=== PATIENT | female | born 1990 | race Caucasian/White ===

== ENCOUNTER 2016-12-25 13:22 | Emergency (ER) | payer OTHER ==
[~2016-12-25 13:22] MED LIST: AZO STANDARD97.5 MG PO; CIPRO PO
[2016-12-25 14:21] LABS: URINE SOURCE CLEAN CATCH
[2016-12-25 14:52] LABS: URINE APPEARANCE CLOUDY; URINE BILIRUBIN NEG (NEG); URINE BLOOD NEG (NEG); URINE COLOR YELLOW; URINE GLUCOSE NEG (NEG); URINE KETONE TRACE (NEG); URINE LEUKOCYTE ESTERASE 1+ (NEG); URINE NITRATE NEG (NEG); URINE PH 6.5 (5-8); URINE PROTEIN NEG (NEG); URINE SPECIFIC GRAVITY 1.024 (1.003-1.035)
[2016-12-25 14:56] LABS: CULTURE INDICATED? YES; URINE SQUAMOUS EPITHELIAL CELL MOD /[HPF]
[2016-12-25 15:17] LABS: URBCS1 AUWI 0-2 /[HPF] (0-2)
[2016-12-25 15:19] LABS: URINE BACTERIA AUWI 3+ (NEGATIVE); URINE MUCUS PRESENT
[2016-12-28 10:30] LABS: CHLAMYDIA TRACH Not Detected (Not Detected); N GONOR Detected (Not Detected)
== END 2016-12-25 15:57 | disposition home or self-care (01) ==
LOC: CED 13:22 → CFTX 13:22 → CED 14:33 → CFTX 15:57
PROVIDERS: Physician Assistant Medical
DX: N76.0 Acute vaginitis (principal); F17.210 Nicotine dependence, cigarettes, uncomplicated; Z90.89 Acquired absence of other organs
CPT/HCPCS: 81003; 84703; 87086; 87491; 87591; 87808; 87905; 99283

== ENCOUNTER 2017-01-10 12:23 | Emergency (ER) | payer OTHER | END 2017-01-10 13:51 | disposition home or self-care (01) | LOC: CFTX 12:23 → CED 12:23 → CFTX 12:54 → CED 12:54 → CFTX 13:51 | DX: A54.9 Gonococcal infection, unspecified (principal); F41.9 Anxiety disorder, unspecified; F17.210 Nicotine dependence, cigarettes, uncomplicated; Z88.5 Allergy status to narcotic agent; Z88.8 Allergy status to other drugs, medicaments and biological substances | CPT/HCPCS: 96372; 99283; J1580 ==